=== PATIENT | female | born 1990 ===

== ENCOUNTER 2021-03-15 09:06 | Outpatient (CLI) | payer OTHER | END 2021-03-15 11:02 | disposition home or self-care (01) | LOC: SONOGRAMA 09:06 | PROVIDERS: ATTEND Pathology Anatomic Pathology & Clinical Pathology | DX: E04.1 Nontoxic single thyroid nodule (principal) ==

== ENCOUNTER 2025-05-11 10:55 | Day surgery (SDC) | payer OTHER ==
[2025-05-11] MEDS ORDERED: ONDANSETRON HCL 2 MG/ML VIAL IV ONE (13:30)
[2025-05-11] MEDS ORDERED: fentaNYL CITRATE 50 MCG/ML AMPUL IV PUSH ONE (13:30)
[2025-05-11] MEDS ORDERED: DIPHENHYDRAMINE HCL 50 MG/ML VIAL 1ML IV ONE (13:30)
[2025-05-11] MEDS ORDERED: MIDAZOLAM HCL 2 MG/2 ML VIAL IV ONE (13:30)
== END 2025-05-11 14:20 | disposition home or self-care (01) ==
LOC: AMB-ENDOS 10:55
PROVIDERS: ATTEND Colon & Rectal Surgery
DX: K63.5 Polyp of colon (principal); R19.4 Change in bowel habit